=== PATIENT | male | born 1960 | race Caucasian/White ===

== ENCOUNTER 2018-09-26 01:36 | Emergency (ER) | payer SELFPAY ==
--- NOTE | 2018-09-26 01:51 | EDM.PDOC ---
ED HPI GENERAL MEDICAL PROBLEM - General Chief Complaint: Lower Extremity Injury/Pain Stated Complaint: LEFT BIG TOE PAIN Time Seen by Provider: 09/26/18 01:53 Source of Information: Reports: Patient History Limitations: Reports: Other (incomplete medical records) - History of Present Illness INITIAL COMMENTS - FREE TEXT/NARRATIVE: 57 yo male here with a toe complaint. Has a toenail removed in [place] recently where Jacob lives. He did not follow up with that provider, but rather comes here now for evaluation. Is not diabetic. 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 Has been draining since and it painful. ) Neurological: Reports: No Symptoms ED EXAM, GENERAL - Physical Exam Exam: See Below Exam Limited By: No Limitations General Appearance: Alert, WD/WN, No Apparent Distress Extremities: No Pedal Edema, Other (L great toe nail bed has some purulent looking drainage. There is no increase in warmth noted. No proximal streaking. ) . No: Pedal Edema, Redness Neurological: Alert, Oriented, CN II-XII Intact, Normal Cognition, No Motor/ Sensory Deficits Skin Exam: Warm, No Rash, Wound/Incision (Nail missing from L great toenail. Nail bed is oozing. ) Course - Vital Signs Text/Narrative:: Toe cleaned and dressed per nursing. - Orders/Labs/Meds Orders: Active Orders 24 hr Category Date Time Status Bacitracin [Bacitracin Oint 1 GM] Med 09/26/18 01:58 Once 1 dose TOP ONETIME ONE Hydrogen Peroxide [Proxacol 3%] Med 09/26/18 01:57 Once 30 ml TOP ONETIME ONE Departure - Departure Time of Disposition: 02:30 Disposition: Home, Self-Care 01 Condition: Fair Clinical Impression: Toe pain, left - Discharge Information *PRESCRIPTION DRUG MONITORING PROGRAM REVIEWED*: No *COPY OF PRESCRIPTION DRUG MONITORING REPORT IN PATIENT CHEIKH: No Referrals: Grant Cai PA [Primary Care Provider] - Forms: ED Department Discharge Additional Instructions: Take Cephalexin every 8 hrs. Take Hart for pain relief if ibuprofen and acetaminophen together are insufficient. Do not take acetaminophen and Hart together. Continue twice daily cleaning of toe by soaking in warm, soapy water. Dry thoroughly. Apply Bacitracin ointment and a new dressing. Follow up with your doctor in the next 72 hrs. - My Orders Last 24 Hours: My Active Orders 09/26/18 01:57 Hydrogen Peroxide [Proxacol 3%] 30 ml TOP ONETIME ONE 09/26/18 01:58 Bacitracin [Bacitracin Oint 1 GM] 1 dose TOP ONETIME ONE - Assessment/Plan Last 24 Hours: My Active Orders 09/26/18 01:57 Hydrogen Peroxide [Proxacol 3%] 30 ml TOP ONETIME ONE 09/26/18 01:58 Bacitracin [Bacitracin Oint 1 GM] 1 dose TOP ONETIME ONE
[2018-09-26] MEDS ORDERED: Hydrogen Peroxide 3% Top Soln 240 ML Bottle TOP ONE (01:57)
[2018-09-26] MEDS ORDERED: Bacitracin Oint 1 GM U/D Packet TOP ONE (01:58)
== END 2018-09-26 02:52 | disposition home or self-care (01) ==
LOC: JP.ED 01:36
DX: M79.675 Pain in left toe(s) (principal); Z91.018 Allergy to other foods; Z91.030 Bee allergy status
CPT/HCPCS: 99283; A9270

== ENCOUNTER 2022-04-02 16:00 | Emergency (ER) | payer SELFPAY ==
[2022-04-02] MEDS ORDERED: Ketorolac 30 MG/ML SDV ONE (16:20)
[2022-04-02] MEDS ORDERED: LORazepam 0.5 MG Tab ONE (16:20)
[2022-04-02] MEDS ORDERED: Sodium Chloride 0.9% 1,000 ML IV ONE (18:30)
[2022-04-27 13:46] LABS: ESTIMATED GFR 61 mL/min (>60)
[2022-04-27 13:47] LABS: TROPONIN I HIGH SENSITIVITY 8.6 pg/mL (<=60.3)
== END 2022-04-02 19:37 | disposition home or self-care (01) ==
LOC: JP.ED 16:00
DX: F41.1 Generalized anxiety disorder (principal); J44.9 Chronic obstructive pulmonary disease, unspecified
CPT/HCPCS: 36415; 71045; 80053; 82803; 84484; 85025; 96374; 99285; A9270; J1885; J7030